=== PATIENT | female | born 1940 | race Hispanic/Latino ===

== ENCOUNTER 2022-05-24 08:44 | Emergency (ER) | payer OTHER, MEDICAID ==
[2022-05-24] MEDS ORDERED: Succinylcholine 200 MG/10 ml SYRINGE FS ONE (08:52)
[2022-05-24] MEDS ORDERED: EPINEPHrine 1 MG/10 ML Abboject SYRINGE ONE (08:52)
[2022-05-24] MEDS ORDERED: Sodium Bicarb 50 MEQ/50 ML Abboject 8.4% SYRINGE ONE (08:52)
[2022-05-24] MEDS ORDERED: Atropine Sulfate 1 mg/10 ml Syringe ONE (08:52)
[2022-05-24] MEDS ORDERED: Calcium Chloride 1 GM/10 ML Abboject SYRINGE ONE ×3 (08:52→10:39)
[2022-05-24] MEDS ORDERED: NOREPINEPHRINE 8 MG/250 ML-D5W 250 ML ONE (09:39)
[2022-05-24] MEDS ORDERED: Hydrocortisone Sod Succ/PF 100 mg/2 ml Vial ONE (09:41)
[2022-05-24 10:10] LABS: ALT (SGPT) 58 U/L (8-55); AST (SGOT) 110 U/L (5-34); Alkaline Phosphatase 56 U/L (40-110); BUN (Urea Nitrogen) 46 mg/dL (9.8-20.1); Bilirubin, Total 0.3 mg/dL (0.2-1.2); Calc. Creatinine Clearance 0 mL/min (70-130); Chloride 102 mmol/L (98-107); Estimated GFR 16; Globulin 1.7 g/dL (2.4-3.5); Glucose 139 mg/dL (83-110); Potassium 4.3 mmol/L (3.5-5.1); Protein, Total 3.7 g/dL (5.8-8.1); Sodium 132 mmol/L (136-145)
[2022-05-24] MEDS ORDERED: Cefepime 2 GM VIAL ONE (10:10)
[2022-05-24 10:11] LABS: #Lymphocytes 1.1 thou/uL (1.20-3.40); #Monocytes 0.8 thou/uL (0.11-0.59); #Neutrophils 8.2 thou/uL (1.40-6.50); %Basophils 0.1 % (0.0-1.0); %Eosinophils 0.1 % (0.0-10.0); %Lymphocytes 11.1 % (21.0-51.0); %Neutrophils 80.7 % (42.0-75.0); Hemoglobin 7.6 g/dL (12.0-16.0); Mean Corpuscular HGB CONC 29.7 g/dL (32.0-36.0); Mean Corpuscular Hemoglobin 33.3 pg (27.0-31.0); Mean Platelet Volume 8.9 fL (7.4-10.4); Platelet Count 202 thou/uL (130-400); RBC Distribution Width 16.5 % (11.5-14.5); Red Blood Cell (RBC) Count 2.27 mill/uL (4.20-5.40); White Blood Cell (WBC) Count 10.1 thou/uL (4.8-10.8)
[2022-05-24 10:13] LABS: Calcium 5.7 mg/dL (7.8-10.44); Carbon Dioxide Less than 8 mmol/L (23-31)
[2022-05-24 10:22] LABS: CK (CPK) 670 U/L (29-168); Magnesium 1.3 mg/dL (1.6-2.6)
[2022-05-24] MEDS ORDERED: Vancomycin 1 GM/200 ML BAG ONE (10:28)
[2022-05-24] MEDS ORDERED: Magnesium 2 GM/50 ML BAG (IN WATER) ONE (10:36)
[2022-05-24] MEDS ORDERED: Sodium Bicarb 50 MEQ/50 ML VIAL ONE ×2 (10:38→10:51)
[2022-05-24 10:43] LABS: Analyzer IN Cardio ER; Base Excess -26.9 mEq/L (-2.0 to +3.0); Calcium, Ionized (venous) 0.83 mmol/L (1.16-1.32); Chloride (VBG) 102 mmol/L (98-106); Hemoglobin (Hb) 9.9 g/dL (11.7-16.1); Potassium (VBG) 4.72 mmol/L (3.70-5.30); Sodium 128.8 mmol/L (133-146)
[2022-05-24 10:46] LABS: CKMB 16.1 ng/mL (0-6.6)
[2022-05-24 10:50] LABS: Actual Bicarbonate (HCO3v) 4 mEq/L (22-28); pH (venous) 6.91 (7.32-7.43)
[2022-05-24 10:56] LABS: Band 21 % (5-11); Burr Cells MARKED = >16 cells (100X) (0-1/hpf); Lymphocytes 14 % (21-51); MDiff Complete? YES; Metamyelocyte 1 % (0-0); Monocytes 4 % (0-10); Neutrophil 60 % (42-75); Platelet Morphology Comment Appears Adequate; Polychromasia SLIGHT = 2-3 cells (100X) (0-2/hpf); Reflex for Review?? NO; Schistocytes SLIGHT = 2-5 cells (100X) (0-1/hpf)
[2022-05-24 15:19] LABS: Digoxin 1.91 ng/mL (0.8-2.0)
== END 2022-05-24 11:11 | disposition expired ==
LOC: ERS 08:44
DX: I46.9 Cardiac arrest, cause unspecified (principal); E16.2 Hypoglycemia, unspecified; I10 Essential (primary) hypertension; I25.2 Old myocardial infarction; I48.91 Unspecified atrial fibrillation; Z86.73 Personal history of transient ischemic attack (TIA), and cerebral infarction without residual deficits; Z79.01 Long term (current) use of anticoagulants; Z79.899 Other long term (current) drug therapy
CPT/HCPCS: 36415; 36416; 51701; 71045; 80053; 80162; 82533; 82550; 82553; 82805; 83605; 83735; 83880; 84443; 84484; 85025; 87040; 87086; 92950; 93005; 96361; 96365; 96375; 99292; J0171; J0461; J0692; J1720; J3370; J3475